=== PATIENT | male | born 1970 | race Caucasian/White ===

== ENCOUNTER 2020-11-07 00:44 | Observation (INO) | payer BC ==
[~2020-11-07] VITALS: Ht 188 cm; Wt 108.9 kg
--- NOTE | ~2020-11-07 | CON ---
[address] [address] CONSULTATION Name: SHADIA GAMBINO Room: [address] M.RMine#: [id number] Admission: 11/07/20 Attend Phys: Milton Berrios MD Discharge: Date of : 72 Report #: [id number] THIS REPORT FOR: cc: FAM - No family physician/PCP FAM - No family physician/PCP ~ Yong Andrews MD DATE OF SERVICE: 11/07/2020 REASON FOR CONSULTATION: Epigastric pain. HISTORY OF PRESENT ILLNESS: This is a 50-year-old male with history of gastroesophageal reflux disease, who takes famotidine and pantoprazole. He reports that he woke up in the middle of the night with epigastric pain. He denies any nausea or vomiting. He also denies any lower GI symptoms as he denies hematochezia, melena, diarrhea, constipation. PAST MEDICAL HISTORY: Significant for gastroesophageal reflux disease. ALLERGIES: No known drug allergy. MEDICATIONS: The patient is on pantoprazole and Pepcid. PHYSICAL EXAMINATION: VITAL SIGNS: Reveals blood pressure of 105/63, respirations 19, temperature 97.8, pulse 66. LUNGS: Clear. CARDIOVASCULAR: Regular. ABDOMEN: Soft, tender to palpation in the epigastric region. Bowel sounds are positive. NEUROLOGIC: The patient is alert and oriented x 3. LABORATORY DATA: Labs reveal sodium of 140, potassium 3.6, BUN is 20, creatinine 1.5, glucose is 118, AST is 18, ALT 43, alkaline phosphatase 90 with lipase of 230. INR is 1.0. WBC is 6.5 with hemoglobin of 15.9 and platelet of 191. IMAGING: CT of abdomen and pelvis was obtained on admission. This was significant for mild hepatosplenomegaly with fatty infiltration of the liver. There were multiple low-attenuation renal lesions noted. Abdominal ultrasound was also obtained, which showed cholelithiasis without any evidence of cholecystitis. There is hepatosplenomegaly with fatty infiltration of the liver. ASSESSMENT AND PLAN: The patient with evidence [place] [address] CONSULTATION Name: SHADIA GAMBINO [address]#: [id number] Admission: 11/07/20 Attend Phys: Milton Berrios MD Discharge: Date of : 72 Report #: [id number] cholelithiasis without any evidence of cholecystitis. He has gastroesophageal reflux disease and complains of epigastric pain, which woke him up in the middle of the night. We will consider upper endoscopy to assure that this is not reflux related as the patient has history of gastroesophageal reflux disease. If this was negative, HIDA scan may be a consideration. We will make further recommendation based on finding. Note that the patient's liver enzymes and lipase are completely normal. By: [id number] Andrews MD /[place]
--- NOTE | ~2020-11-07 | PROC ---
[facility] [address] [place] [address] PROCEDURE REPORT Name: SHADIA GAMBINO Room: [address] Leslee M.RMine#: [id number] Admission: 11/07/20 Attend Phys: Milton Berrios MD Discharge: Date of : 72 Report #: [id number] THIS REPORT FOR: cc: FAM - No family physician/PCP FAM - No family physician/PCP ~ [facility],Medical Records Staff For GI report, please see the Provation report in Perceptive 7 content. By: [id number] Records Staff [facility] /MUSA
[2020-11-07 00:47] VITALS: BP 160/92
[2020-11-07] MEDS ORDERED: ACID CONTROLLER20 MG PO (00:50)
[2020-11-07] MEDS ORDERED: PROTONIX40 M2 PO (00:51)
[2020-11-07 01:08] LABS: ABSOLUTE EOSINOPHILS 0.2 thou/uL (0.0-0.7); ABSOLUTE LYMPHOCYTES 1.9 thou/uL (0.8-5.3); ABSOLUTE MONOCYTES 0.5 thou/uL (0.0-1.2); ABSOLUTE NEUTROPHILS 3.8 thou/uL (1.6-8.1); BASOPHILS 0.6 %; EOSINOPHILS 3.6 %; HEMATOCRIT 46.3 % (42.0-52.0); HEMOGLOBIN 15.9 gm/dL (14.0-18.0); LYMPHOCYTES 28.8 %; MCH 32.5 pg (26.0-34.0); MCHC 34.4 g/dL (28.0-37.0); MCV 94.4 fL (80.0-100.0); MONOCYTES 8.2 %; MPV 7.3 fl. (7.2-11.1); NUCLEATED RBCS 0 /100WBC; PLATELET COUNT* 191 thou/uL (150-400); POLYS 58.8 %; RBC 4.91 mil/uL (4.50-6.00); RDW-CV 12.6 % (10.5-14.5); WBC 6.5 thou/uL (4.0-11.0)
[2020-11-07 01:17] LABS: APTT 26.1 Seconds (25.0-31.3); PROTIME 10.3 Seconds (9.20-11.50)
[2020-11-07 01:31] LABS: CALCIUM 8.9 mg/dL (8.5-10.1); CREATININE 1.5 mg/dL (0.6-1.3); POTASSIUM 3.6 mmol/L (3.5-5.1)
[2020-11-07 01:36] LABS: ALBUMIN 4.1 g/dL (3.4-5.0); TOTAL BILIRUBIN 0.5 mg/dL (<0.1-1.0); TOTAL PROTEIN 7.7 g/dL (6.4-8.2)
[2020-11-07 07:02] VITALS: BP 105/63
[2020-11-07 09:00] VITALS: BP 114/72
--- NOTE | 2020-11-07 11:16 | EKG ---
[place] [address] ELECTROCARDIOGRAM REPORT Name: SHADIA GAMBINO Room: [address] M.R.#: [id number] Admission: 11/07/20 Attend Phys: Milton Berrios, Discharge: Date of : 72 Date of Service: 11/07/20 0048 Report #: [id number] THIS REPORT FOR: //name// [facility] ED Test Date: 2020-11-07 Test Time: 00:48:39 Pat Name: SHADIA GAMBINO Department: Room: [facility] Gender: M Senior Control Systems Engineer: ALONZO : 1970 Requested By: Shruthi Duckworth Order Number: [id number] MD: Santos Hernandez Measurements Intervals [place] Rate: 66 P: 47 MT: 139 QRS: 30 QRSD: 97 T: 36 QT: 405 QTc: 425 Interpretive Statements Sinus rhythm No previous ECG available for comparison Electronically Signed On 11-07-2020 11:16:37 CDT by Santos Hernandez [email or web address] <ELECTRONICALLY SIGNED> By: Santos Hernandez MD, [facility] 11/07/20 1116 0048 0048 Santos Hernandez MD, [facility] /EPI
[2020-11-07 16:00] VITALS: BP 116/77
[2020-11-07 20:00] VITALS: BP 123/79
[2020-11-08] VITALS: BP 116/66
[2020-11-08 04:00] VITALS: BP 118/66
[2020-11-08 05:30] LABS: CHOLESTEROL 170 mg/dL (<200); HDL CHOLESTEROL 36 mg/dL (>40); LDL CHOLESTEROL 93 mg/dL (<100); TC:HDL 4.7 Ratio (Not establshd); TRIGLYCERIDE 207 mg/dL (<150); VLDL 41 mg/dL (<40)
[2020-11-08 05:31] LABS: SERUM ASSESSMENT CLEAR
[2020-11-08 08:04] LABS: URINE BILIRUBIN NEGATIVE (Negative); URINE BLOOD NEGATIVE (Negative); URINE CLARITY CLEAR; URINE COLOR YELLOW; URINE GLUCOSE-RANDOM NEGATIVE (Negative); URINE KETONES NEGATIVE (Negative); URINE LEUKOCYTES-REFLEX NEGATIVE (Negative); URINE NITRITE-REFLEX NEGATIVE (Negative); URINE PROTEIN NEGATIVE (Negative); URINE SPECIFIC GRAVITY 1.025 (1.005-1.030); URINE UROBILINOGEN 0.2 E.U./dl (0.2-1.0)
[2020-11-08 08:30] VITALS: BP 116/73
--- NOTE | 2020-11-08 14:33 | EXE ---
[place] [address] STRESS ECHOCARDIOGRAM Name: SHADIA GAMBINO Room: [address] M.R.#: [id number] Admission: 11/07/20 Attend Phys: Milton Berrios, Discharge: Date of : 72 Date of Service: 11/08/20 1433 Report #: [id number] THIS REPORT FOR: cc: FAM - No family physician/PCP FAM - No family physician/PCP Ishaan Teran MD [facility] ~ APPROVED REPORT Study performed: 11/08/2020 11:24:36 Exam: Stress Echocardiogram Indication: Chest pain Patient Location: In-Patient Stress Nurse: Marleny Ruiz RN Room #: 222 Supervising Physician: Ishaan Teran MD Ht: 6 ft 2 in HR: 83 bpm BP: 97/69 mmHg Medical History Cardiac Risk Factors: Age,, Hyperlipidemia, Tobacco History (Former), FHX of CAD Procedure The patient underwent an Exercise Stress Test using the Samson Protocol. Blood pressure, heart rate, and EKG were monitored. An Echocardiogram was performed by central sterile technician in four stages in quad fashion. At peak stress, four selected images were obtained and placed side by side with resting images for comparison. Stress Test Details Stress Test: Exercise stress testing was performed using a Samson protocol. HR Resting HR: 83 bpm Max Heart Rate (APMHR): 171 bpm Max HR Achieved: 160 bpm Target HR (85% APMHR): 145 bpm % of APMHR: 93 Recovery HR: 100 bpm HR response to stress: Normal HR response to stress BP Resting BP: 97/69 mmHg Max BP: 147/64 [place] [address] STRESS ECHOCARDIOGRAM Name: SHADIA GAMBINO Room: [address]#: [id number] Admission: 11/07/20 Attend Phys: Milton Berrios, Discharge: Date of : 72 Date of Service: 11/08/20 1433 Report #: [id number] Recovery BP: 102/77 mmHg BP response to stress: Normal blood pressure response to stress. ECG Resting ECG: sinus rhythm, normal EKG Stress ECG: no ischemic st-t changes Arrhythmia: occasional isolated pvc's Recovery ECG: no ischemic st-t changes Clinical Reason for Termination: Completed protocol Exercise duration: 9 min 05 sec Highest Stage Achieved: Stage 3: 3.4 mph at 14% grade. Exercise capacity: 10.16 METs Pre-Stress Echo The resting Echocardiogram showed normal left ventricular contractility with an estimated Ejection Fraction of about 60-65%. Normal wall motion in all segments on baseline images. Post-Stress Echo The stress Echocardiogram showed normal left ventricular contractility with an estimated Ejection Fraction of about >70%. Normal augmentation of wall motion in all segments on post stress images. Conclusion Clinical Response: Non-ischemic Exercise Capacity: Average Stress ECG Response: Non-ischemic Stress Echo Images: Non-ischemic Other Information Study Quality: Fair <ELECTRONICALLY SIGNED> By: Ishaan Teran MD, FAC 11/08/20 1433 143 1433 Ishaan Teran MD, FACC /INF
[2020-11-08 15:50] VITALS: BP 116/73
[2020-11-08 15:58] VITALS: BP 131/82
--- NOTE | 2020-11-10 14:07 | PATH ---
[address] [address] PATHOLOGY RPT PROCEDURE Name: SHADIA GAMBINO Room: [address] Leslee Hector#: [id number] Admission: 11/07/20 Date of : 72 Discharge: 11/08/20 Report #: [id number] Path Case #: [id number] [facility] Accession Number: [id number] . 01 Material submitted: . gastrointestinal site - ANTRAL BIOPSY FOR GASTRITIS . 01 Clinical history: . EPIGASTRIC PAIN CHOLECYSTITIS HEPATIC STEATOSIS CHEST PAIN . 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 (MICHAELA:mary 11/10/2020) . Special stain: H. pylori immuno QMS 11/10/2020 1046 Local . 02 Electronically signed: . Christoph Wan MD, Pathologist NPI- [id number] . 01 Gross description: . The specimen is received in formalin, labeled "Shadia Gambino, antral biopsy for gastritis". Received are three segments of pale velarde tissue ranging in size from 0.3-0.5 cm in maximum dimensions. The specimen is submitted entirely in cassette A1. (CAA; 11/09/2020) QAC/QAC 11/09/2020 1201 Local . 02 Pathologist provided ICD-10: K29.50 . 02 CPT . 522787, X86307 Specimen Comment: A courtesy copy of this report has been sent to [phone] Specimen Comment: [id number] Specimen Comment: Report sent to / DR ORTIZ Performed at: [address] [id number] MD Elian White MD Phone: [phone] Performed at: [address] [id number] [place] [address] PATHOLOGY RPT PROCEDURE Name: SHADIA GAMBINO Room: [address] Leslee MJoelle#: [id number] Admission: 11/07/20 Date of : 72 Discharge: 11/08/20 Report #: [id number] Path Case #: [id number] MD Christoph Wan MD Phone: [phone]
== END 2020-11-08 16:35 | disposition home or self-care (01) ==
LOC: M.ERS 00:44 → M.TBA-ER 03:30 → M.2W 08:00
PROVIDERS: Family Medicine; Personal Emergency Response Attendant; ADMIT Internal Medicine; ATTEND Internal Medicine
DX: K29.00 Acute gastritis without bleeding (principal); K80.20 Calculus of gallbladder without cholecystitis without obstruction; Z20.822 Contact with and (suspected) exposure to COVID-19; K76.0 Fatty (change of) liver, not elsewhere classified; K44.9 Diaphragmatic hernia without obstruction or gangrene; K21.9 Gastro-esophageal reflux disease without esophagitis